=== PATIENT | female | born 1970 | race Caucasian/White ===

== ENCOUNTER → 2024-09-06 09:35 | Outpatient (REF) | payer OTHER, SELFPAY | LOC: WDC 09:35 | PROVIDERS: ATTENDING PHYSICIAN Physician Assistant Medical | DX: Z12.31 Encounter for screening mammogram for malignant neoplasm of breast (principal) | CPT/HCPCS: 77063; 77067 ==

== ENCOUNTER 2025-05-18 07:28 | Outpatient (RCR) | payer OTHER, SELFPAY | END 2025-05-18 23:59 | disposition home or self-care (01) | LOC: RPT 07:28 | PROVIDERS: ATTENDING PHYSICIAN Orthopaedic Surgery; FAMILY PHYSICIAN Physician Assistant Medical | DX: M25.552 Pain in left hip (principal); Z73.6 Limitation of activities due to disability; R26.2 Difficulty in walking, not elsewhere classified; M62.81 Muscle weakness (generalized) | CPT/HCPCS: 97110; 97162 ==

== ENCOUNTER → 2025-06-19 15:38 | Outpatient (REF) | payer OTHER, SELFPAY | LOC: REG 15:38 | PROVIDERS: ATTENDING PHYSICIAN Pain Medicine Interventional Pain Medicine | DX: Z01.818 Encounter for other preprocedural examination (principal) | CPT/HCPCS: 93005 ==

== ENCOUNTER 2025-07-22 14:48 | Emergency (ER) | payer OTHER, SELFPAY ==
[2025-07-22 14:58] VITALS: BP 184/111
[2025-07-22 15:48] LABS: Hematocrit 33.6 % (37.0-47.0); Hemoglobin 11.4 g/dL (12.0-16.0); Mean Corp Hgb Conc. 33.9 g/dL (33.0-37.0); Mean Corpuscular Volume 94.1 fL (81.0-99.0); Nucleated Red Blood Cells % 0 %; Platelet Count 265 10^3/uL (130-400); Red Cell Dist. Width 13.3 % (11.5-14.5)
[2025-07-22 15:56] LABS: Urine Character Clear (Clear)
[2025-07-22 16:04] LABS: ALT (SGPT) 34 U/L (0-35); AST (SGOT) 36 U/L (14-36); Albumin 4.1 g/dl (3.5-5.0); Alkaline Phosphatase 67 U/L (38-126); Blood Urea Nitrogen 25 mg/dl (7-17); Calcium 9.2 mg/dl (8.4-10.2); Carbon Dioxide 28 mmol/L (22-30); Chloride 98 mmol/L (98-107); Glucose 100 mg/dl (70-99); Lipase 180 U/L (23-300); Potassium 4.8 mmol/L (3.5-5.1); Sodium 130 mmol/L (135-145); Total Protein 6.8 g/dl (6.3-8.2); eGFR > 60.00
[2025-07-22 16:24] LABS: Urine Red Blood Cell 0-2 /HPF (0-2)
[2025-07-22 17:30] VITALS: BP 132/72
[2025-07-22 18:21] VITALS: BMI 28.1
[2025-07-22 18:43] LABS: Troponin I < 0.012 ng/ml
[2025-07-22] MEDS: PROTONIX 40 MG PO (19:39)
--- NOTE | 2025-07-22 23:28 | ED.GENMED ---
History of Present Illness
General
Chief Complaint: Abdominal Pain
Source: patient
Exam Limitations: none
Time Seen by Provider: 07/22/25 16:54
Nursing documentation reviewed up to this point in time: agreed with
History of Present Illness
History of Present Illness:
Patient to emergency department with complaint of right lower quadrant abdominal pain. Symptoms started on Sunday. She reports pain is intermittent at times. She denies any fever/chills, nausea, vomiting, diarrhea. Brought to emergency
department by spouse for evaluation. She also notes increasing reflux symptoms. She has been taking Prilosec and Tums without improvement.
Past History
Past History
ED Past Medical History: HTN
Review of Systems
Review of Systems
Allergies reviewed?: Yes
All Other Systems: ROS reviewed and negative except as documented in HPI and ROS
Constitutional: Reports no symptoms
EENT: Reports no symptoms
Respiratory: Reports no symptoms
Cardiac: Reports no symptoms
ABD/GI: Reports abdominal pain (Right lower quadrant abdominal pain)
: Reports no symptoms
Musculoskeletal: Reports no symptoms
Skin: Reports no symptoms
Neurological: Reports no symptoms
Psychiatric: Reports no symptoms
Phy Exam
General Physical Exam
General Presentation: well appearing and no apparent distress
General age: appears stated age
General Skin: warm and dry
General Habitus: normal
Cardiovascular Exam
Cardiovascular Exam: regular rate/rhythm and no edema
Pulmonary Exam
Pulmonary Exam: lungs clear, no respiratory distress and chest non tender
Gastrointestinal Exam
Gastrointestinal Exam: normal bowel sounds, soft, no organomegaly, no pulsatile mass and non distended
Palpation: left upper quadrant: No tenderness, left lower quadrant: No tenderness, right upper quadrant: No tenderness and right lower quadrant: Mild tenderness
Musculoskeletal Exam
Musculoskeletal Exam: full ROM and neuro vasc intact
Skin Exam
Skin Exam: normal color, warm/dry and no rash
Psychiatric Exam
Psychiatric Exam: normal mood/affect
Course
Orders/Labs/Results
Orders:
Orders
07/22/25 15:02
Electrocardiogram (*1) Urgent
Reason for Study: Abdominal Pain
EKG- Treatment ONCE
IV Insert/Care/Rem.- Treatment PRN
07/22/25 15:07
Complete Blood Count/With Diff Urgent
Comprehensive Metabolic Panel Urgent
Lipase Urgent
07/22/25 15:42
Urinalysis Reflex To Culture Urgent
Date Specimen was Collected: 07/22/25
Time Specimen was Collected: 15:02
Urine Microscopic Reflex Cult Urgent
Urine Culture Urgent
LESLYE Source: U
Specimen Description:
Date Specimen was Collected: 07/22/25
Time Specimen was Collected: 15:02
07/22/25 17:02
CT Abd/pelvis W Iv Cont Urgent
Comment:
Reason For Exam: RLQ pain
07/22/25 18:12
Troponin I Urgent
07/22/25 19:27
Pantoprazole [Protonix] 40 mg PO NOW STA
Abnormal Lab Results
07/22/25 07/22/25
15:07 15:42
RBC 3.57 L 10^6/uL
(4.20-5.40)
Hgb 11.4 L g/dL
(12.0-16.0)
Hct 33.6 L %
(37.0-47.0)
MCH 31.9 H pg
(27.0-31.0)
Abs Immat Gran (auto) 0.1 H 10^3/uL
(0-0.05)
Absolute Monos (auto) 0.9 H 10^3/uL
(0.1-0.6)
Immature Gran % 1.5 H %
(0-0.5)
Monocytes % 9.7 H %
(1.7-9.3)
Sodium 130 L mmol/L
(135-145)
BUN 25 H mg/dl
(7-17)
Glucose 100 H mg/dl
(70-99)
Leukocyte Esterase Rfl 1+ A
(Negative)
Urine WBC (Reflex) 11-15 A /HPF
(0-5)
Urine Bacteria (Reflex) Few A
(Negative)
07/22/25 15:07
07/22/25 15:07
Vital Signs
Initial and Last Documented VS:
Initial Vital Signs
Temp Pulse Resp BP Pulse Ox
99.0 F 81 15 184/111 99
07/22/25 14:58 07/22/25 14:58 07/22/25 14:58 07/22/25 14:58 07/22/25 14:58
Last Documented Vital Signs
Temp Pulse Resp BP Pulse Ox
99.0 F 76 16 132/72 98
07/22/25 14:58 07/22/25 17:30 07/22/25 17:30 07/22/25 17:30 07/22/25 23:31
*Radiology
Radiology exam reviewed: radiology read reviewed
*Pulse Oximetry
SaO2: 98
Oxygen Mode of Delivery: Room air
Patient hypoxic: no
*Critical Care Note
Total Time (30-74mins, 75-104mins- exclusive of procedures): Not Applicable
Update Note
Update Note:
Patient to the emergency department for evaluation of right lower quadrant abdominal pain. Pain started earlier this week. She denies any associated nausea vomiting or diarrhea. Vital signs are stable and she remains afebrile. Labs reviewed.
WBC 8.9. Sodium of 130 noted. UA negative for UTI. CT of abdomen and pelvis completed. CT report of mild terminal ileitis. Discussed findings with patient. Will discharge home. Recommend clear liquid diet, advance as tolerated. Close
follow-up with PCP. She was given instructions on signs and symptoms to return to the emergency department and she is agreeable to this plan.
ED Attending Note
-
Portions of this chart may have been created with voice recognition software.� Occasional wrong word or��sound alike� substitutions may have occurred due to the inherent limitations of voice recognition software.
Discharge Plan
Departure
Patient Disposition: Home (Routine Discharge)
Date of Disposition: 07/22/25
Time of Disposition: 19:28
Patient with high blood pressure during this ER visit?: No
Condition: Good
Covid-19: Not Applicable
Discharge Problem:
Terminal ileitis
Instructions: Clear Liquid Diet, Acid Reflux and GERD in Adults (DC), Colitis (DC)
Prescriptions:
New
pantoprazole 40 mg tablet,delayed release (DR/EC)
40 mg PO DAILY Qty: 21 0RF
Referrals:
Reyna Bhardwaj MD [Active, Gastroenterology] - Call in 1-3 days for appt
Linda Morrow PA-C [Family Provider, Family Practice]
Activity Restrictions/Additional Instructions:
Return to the emergency department for any changes in/worsening of your symptoms.
Interventions
Interventions:
*General Assessment Last Done: 07/22/25 14:58
*Neglect/Abuse Screening Last Done: 07/22/25 18:19
*ED COVID-19 Vaccine History Last Done: 07/22/25 14:58
*ED Influenza Vaccine History Last Done: 07/22/25 14:58
[facility] Fall Risk Assessment Tool Last Done: 07/22/25 18:19
*Risk Screen - Suicide (C-SSRS) Last Done: 07/22/25 14:58
*Nursing Disposition Last Done: 07/22/25 20:01
[facility]-Etmdxvitna Assessment Last Done: 07/22/25 18:19
Discharge Date and Time
Discharge Date/Time: 07/22/25 20:02
Print Language: NORWE[place]
== END 2025-07-22 20:02 | disposition home or self-care (01) ==
LOC: EMR 14:48
PROVIDERS: Emergency Medicine; Nurse Practitioner; EMERGENCY PHYSICIAN Emergency Medicine; FAMILY PHYSICIAN Physician Assistant Medical
DX: K50.00 Crohn's disease of small intestine without complications (principal); K21.9 Gastro-esophageal reflux disease without esophagitis; I10 Essential (primary) hypertension
CPT/HCPCS: 99284; 74177; 80053; 81003; 81015; 83690; 84484; 85025; 87086; 93005; Q9967

== ENCOUNTER 2025-07-29 12:45 | Outpatient (RCR) | payer OTHER, SELFPAY | END 2025-07-29 23:59 | disposition home or self-care (01) | LOC: RPT 12:45 | PROVIDERS: FAMILY PHYSICIAN Physician Assistant Medical | DX: Z47.1 Aftercare following joint replacement surgery (principal); M16.12 Unilateral primary osteoarthritis, left hip; Z73.6 Limitation of activities due to disability; M62.81 Muscle weakness (generalized); R26.2 Difficulty in walking, not elsewhere classified; M25.552 Pain in left hip; Z96.642 Presence of left artificial hip joint | CPT/HCPCS: 97010; 97110; 97112; 97140; 97161; 97530 ==